=== PATIENT | male | born 1970 | race Caucasian/White ===

== ENCOUNTER 2017-08-18 22:23 | Emergency (ER) | payer BC ==
[~2017-08-18] VITALS: Ht 177.8 cm; Wt 111.8 kg
[~2017-08-18 22:23] MED LIST: NOHOMEMEDS
[2017-08-18 23:04] LABS: APPEARANCE CLEAR ((CLEAR)); BILIRUBIN NEGATIVE; BLOOD SMALL; COLOR YELLOW ((YELLOW)); GLUCOSE (STRIP) NEGATIVE; KETONES NEGATIVE; LEUKOCYTES NEGATIVE; NITRITE NEGATIVE; PROTEIN (STRIP) NEGATIVE; SPECIFIC GRAVITY 1.024 (1.000-1.030); UROBILINOGEN 0.2 MG/DL (0.2-1.0)
[2017-08-18 23:11] LABS: HEMATOCRIT 42.7 % (38.0-50.0); HEMOGLOBIN 15.2 G/DL (12.5-16.6); MCH 28.5 PG (29.0-34.0); MCHC 35.6 G/DL (30.0-36.0); PLATELET COUNT 252 K/uL (156-360); RBC DIS.WIDTH-CV 12.6 % (11.8-14.6); RBC DIS.WIDTH-SD 35.8 % (39-53); RED BLOOD COUNT 5.34 M/uL (4.00-5.50); WHITE BLOOD COUNT 14.3 K/uL (4.1-10.2)
[2017-08-18 23:19] LABS: ALBUMIN 4.5 g/dL (3.2-4.8); CHLORIDE 103 mEq/L (99-109); POTASSIUM 3.7 mEq/L (3.7-5.4); SODIUM 136 mEq/L (136-147)
[2017-08-18 23:22] LABS: GLUCOSE 99 mg/dL (70-99); TOTAL PROTEIN 7.1 g/dL (6.4-8.3)
[2017-08-18 23:24] LABS: TOTAL BILIRUBIN 0.6 mg/dL (0.0-1.0)
[2017-08-18 23:25] LABS: ALKALINE PHOSPHATASE 52 IU/L (3-129); CREATININE 1.3 mg/dL (0.6-1.3); GFR ESTIMATE (CALCULATED) > 59 mL/min/ (58.99-99999)
[2017-08-18 23:26] LABS: UREA NITROGEN (BUN) 22 mg/dL (9-23)
[2017-08-18 23:27] LABS: AST (GOT) 49 IU/L (2-34)
[2017-08-18 23:28] LABS: ALT (GPT) 57 IU/L (3-49)
[2017-08-18] MEDS ORDERED: FLOMAX0.4 MG PO (23:52)
[2017-08-18] MEDS ORDERED: PERCOCET 5/31 TABLET PO (23:52)
[2017-08-18] MEDS ORDERED: MOTRIN800 MG PO (23:52)
[2017-08-18] MEDS ORDERED: ZOFRAN ODT4 MG PO (23:56)
[2017-08-19 00:02] VITALS: BP 162/94
[2017-08-19 00:09] LABS: BACTERIA NONE SEEN /HPF; EPITHELIAL CELLS NONE SEEN /HPF; HYALINE CASTS 0-5 /LPF; MUCUS RARE /LPF; RED BLOOD CELLS 0-5 /HPF (0-5); UCUL ADDED? NO; WHITE BLOOD CELLS 0-5 /HPF (0-5)
== END 2017-08-19 00:05 | disposition home or self-care (01) ==
LOC: EME 22:23
PROVIDERS: Nurse Practitioner Family
DX: N20.0 Calculus of kidney (principal); R11.2 Nausea with vomiting, unspecified; F17.200 Nicotine dependence, unspecified, uncomplicated; Z86.79 Personal history of other diseases of the circulatory system
CPT/HCPCS: 74176; 80053; 81003; 85027; 99281; 99284